=== PATIENT | male | born 1970 | race African-American/Black ===

== ENCOUNTER 2023-10-31 11:32 | Inpatient (IN) | payer MEDICARE, MEDICAID ==
[2023-10-31 13:19] LABS: ALT (SGPT) 12 U/L (8-55); AST (SGOT) 9 U/L (5-34); Albumin 3.8 g/dL (3.5-5.0); Alkaline Phosphatase 69 U/L (40-110); Anion Gap 15 mmol/L (10-20); BUN (Urea Nitrogen) 16 mg/dL (8.4-25.7); Bilirubin, Total 0.6 mg/dL (0.2-1.2); Calc. Creatinine Clearance 0 mL/min (70-130); Calcium 9.4 mg/dL (7.8-10.44); Carbon Dioxide 32 mmol/L (22-29); Chloride 99 mmol/L (98-107); Estimated GFR 6; Globulin 5.1 g/dL (2.4-3.5); Glucose 89 mg/dL (70-105); Potassium 3.8 mmol/L (3.5-5.1); Protein, Total 8.9 g/dL (6.0-8.3); Sodium 142 mmol/L (136-145)
[2023-10-31 13:20] LABS: Mean Platelet Volume 10.4 fl (7.4-10.4); Platelet Count 274 10x3/uL (150-450)
[2023-10-31 13:21] LABS: #Eosinphils 0.3 10x3/uL (0.0-0.5); #Monocytes 0.4 10x3/uL (0.0-1.1); #Neutrophils 5.9 10x3/uL (1.5-8.4); %Basophils 0.4 % (0.0-2.0); %Eosinophils 3.7 % (0.0-6.0); %Lymphocytes 10.7 % (18.0-47.0); %Monocytes 5.1 % (0.0-10.0); %Neutrophils 79.3 % (40.0-75.0); Hematocrit 24.2 % (38.8-50.0); Hemoglobin 7.2 g/dL (13.5-17.5); Mean Corpuscular HGB CONC 29.8 g/dL (32.0-36.0); Mean Corpuscular Hemoglobin 21.2 pg (27.0-33.0); Mean Corpuscular Volume 71.4 fl (81.2-95.1); RBC Distribution Width 20.4 % (11.5-14.5); Red Blood Cell (RBC) Count 3.39 10x6/uL (4.32-5.72); White Blood Cell (WBC) Count 7.4 10x3/uL (3.5-10.5)
[2023-10-31] MEDS ORDERED: Ondansetron PF 4 MG/2 ML Vial IVP PRN (15:00)
[2023-10-31] MEDS ORDERED: Acetaminophen 325 MG TAB PO PRN (15:00)
[2023-10-31 15:34] LABS: Iron 27 ug/dL (65-175); Iron Binding Capacity, Total 156 mcg/dL (261-462)
[2023-10-31 18:50] VITALS: BMI 25.8
[2023-10-31] MEDS: Pantoprazole 40 MG VIAL IVP SCH (21:32)
[2023-11-01 04:51] LABS: #Eosinphils 0.4 10x3/uL (0.0-0.5); #Monocytes 0.5 10x3/uL (0.0-1.1); #Neutrophils 3.5 10x3/uL (1.5-8.4); %Basophils 0.5 % (0.0-2.0); %Eosinophils 7.6 % (0.0-6.0); %Lymphocytes 19.5 % (18.0-47.0); %Monocytes 8.1 % (0.0-10.0); %Neutrophils 63.8 % (40.0-75.0); Mean Corpuscular HGB CONC 28.6 g/dL (32.0-36.0); Mean Corpuscular Hemoglobin 20.6 pg (27.0-33.0); Mean Corpuscular Volume 72.2 fl (81.2-95.1); Mean Platelet Volume 9.5 fl (7.4-10.4); Platelet Count 218 10x3/uL (150-450); RBC Distribution Width 20.3 % (11.5-14.5); Red Blood Cell (RBC) Count 2.91 10x6/uL (4.32-5.72); White Blood Cell (WBC) Count 5.6 10x3/uL (3.5-10.5)
[2023-11-01 04:52] LABS: Anion Gap 14 mmol/L (10-20); BUN (Urea Nitrogen) 25 mg/dL (8.4-25.7); Calc. Creatinine Clearance 8 mL/min (70-130); Calcium 8.4 mg/dL (7.8-10.44); Carbon Dioxide 29 mmol/L (22-29); Chloride 100 mmol/L (98-107); Estimated GFR 5; Glucose 106 mg/dL (70-105); Potassium 3.9 mmol/L (3.5-5.1); Sodium 139 mmol/L (136-145)
[2023-11-01 05:26] LABS: Anisocytosis MARKED = >30 cells (100X) (0-5/hpf)
[2023-11-01 05:27] LABS: Hypochromia MODERATE=16-30 cells (100X) (0-5/hpf); Macrocytosis SLIGHT = 6-15 cells (100X) (0-5/hpf); Microcytosis MODERATE=15-30 cells (100X) (0-5/hpf); Poikilocytosis SLIGHT = 6-15 cells (100X) (0-5/hpf)
[2023-11-01 05:29] LABS: Polychromasia SLIGHT = 2-3 cells (100X) (0-2/hpf); Target Cells SLIGHT = 2-5 cells (100X) (0-1/hpf)
[2023-11-01 05:30] LABS: Ovalocytes SLIGHT = 2-5 cells (100X) (0-1/hpf)
[2023-11-01 05:33] LABS: Schistocytes SLIGHT = 2-5 cells (100X) (0-1/hpf)
[2023-11-01 05:34] LABS: Platelet Adequacy Comment Appears Adequate
[2023-11-01] MEDS: Pantoprazole 40 MG VIAL IVP SCH ×2 (09:12→21:04)
[2023-11-01] MEDS ORDERED: GoLYTELY 4,000 ml Bottle PO SCH (19:00)
[2023-11-02 07:50] LABS: Anion Gap 17 mmol/L (10-20); BUN (Urea Nitrogen) 37 mg/dL (8.4-25.7); Calc. Creatinine Clearance 7 mL/min (70-130); Calcium 8.8 mg/dL (7.8-10.44); Carbon Dioxide 27 mmol/L (22-29); Chloride 100 mmol/L (98-107); Estimated GFR 4; Glucose 88 mg/dL (70-105); Potassium 4.5 mmol/L (3.5-5.1); Sodium 139 mmol/L (136-145)
[2023-11-02 08:02] LABS: #Eosinphils 0.5 10x3/uL (0.0-0.5); #Monocytes 0.4 10x3/uL (0.0-1.1); #Neutrophils 5.3 10x3/uL (1.5-8.4); %Basophils 0.4 % (0.0-2.0); %Eosinophils 6.1 % (0.0-6.0); %Lymphocytes 17.8 % (18.0-47.0); %Monocytes 5.3 % (0.0-10.0); %Neutrophils 69.7 % (40.0-75.0); Hematocrit 23.2 % (38.8-50.0); Mean Corpuscular HGB CONC 30.2 g/dL (32.0-36.0); Mean Platelet Volume 9.9 fl (7.4-10.4); Platelet Count 246 10x3/uL (150-450); RBC Distribution Width 19.9 % (11.5-14.5); Red Blood Cell (RBC) Count 3.18 10x6/uL (4.32-5.72); White Blood Cell (WBC) Count 7.5 10x3/uL (3.5-10.5)
[2023-11-02] MEDS: Pantoprazole 40 MG VIAL IVP SCH ×2 (08:31→21:23)
[2023-11-02] MEDS ORDERED: GoLYTELY 4,000 ml Bottle PO SCH (18:00)
[2023-11-03 06:06] LABS: #Eosinphils 0.4 10x3/uL (0.0-0.5); #Monocytes 0.4 10x3/uL (0.0-1.1); %Basophils 0.6 % (0.0-2.0); %Eosinophils 5.9 % (0.0-6.0); %Lymphocytes 16.2 % (18.0-47.0); %Monocytes 5.5 % (0.0-10.0); %Neutrophils 71.4 % (40.0-75.0); Hematocrit 24.2 % (38.8-50.0); Hemoglobin 7.4 g/dL (13.5-17.5); Mean Corpuscular HGB CONC 30.6 g/dL (32.0-36.0); Mean Corpuscular Hemoglobin 21.8 pg (27.0-33.0); Mean Corpuscular Volume 71.2 fl (81.2-95.1); Mean Platelet Volume 9.2 fl (7.4-10.4); Platelet Count 209 10x3/uL (150-450); RBC Distribution Width 20.5 % (11.5-14.5)
[2023-11-03] MEDS: Pantoprazole 40 MG VIAL IVP SCH ×2 (08:45→21:30)
[2023-11-03] MEDS ORDERED: PROPOFOL 40 ML ONE (12:07)
[2023-11-03] MEDS ORDERED: Glycopyrrolate 0.2 MG/ML 5 ML SYRINGE ONE (12:07)
[2023-11-03] MEDS ORDERED: PROPOFOL 20 ML ONE (12:35)
[2023-11-03 16:15] LABS: HBSAg Index 0.23 S/CO (0-0.99); Hep B Surf Ag Non-Reactive S/CO (NonReactive)
[2023-11-04 05:39] LABS: HBSAg Index 0.25 S/CO (0-0.99); Hep B Surf Ag Non-Reactive S/CO (NonReactive)
[2023-11-04] MEDS: Pantoprazole 40 MG VIAL IVP SCH (09:08)
[2023-11-04 13:20] LABS: Hematocrit 23.6 % (38.8-50.0); Hemoglobin 7.2 g/dL (13.5-17.5)
[2023-11-04 14:21] LABS: Hep B Core Total Ab Non-Reactive (NonReactive); Hep B Core Total Index 0.13 S/CO (0-0.79); Hep C IgG Ab Non-Reactive S/CO (NonReactive); Hep C Index 0.63 S/CO (0-0.79)
[2023-11-04 14:24] LABS: HBSAB Concentration 281.17 mIU/mL; Hep B Surf AB Reactive (NonReactive)
[2023-11-04 14:50] LABS: Hep B Core Total Ab Non-Reactive (NonReactive); Hep B Core Total Index 0.22 S/CO (0-0.79)
[2023-11-04 14:51] LABS: HBSAB Concentration 283.23 mIU/mL; Hep B Surf AB Reactive (NonReactive)
[2023-11-04 14:52] LABS: Hep C IgG Ab Non-Reactive S/CO (NonReactive); Hep C Index 0.74 S/CO (0-0.79)
[2023-11-04 17:35] VITALS: BP 142/81; TEMP 98.6
== END 2023-11-04 20:49 | disposition home or self-care (01) | DRG 393 ==
LOC: CSHERS 11:32 → CSHTELE 14:36 → OBSVTOIN 11-02 15:21
PROVIDERS: ADMIT Internal Medicine; ATTEND Internal Medicine
PROC: 30233N1 Transfusion of Nonautologous Red Blood Cells into Peripheral Vein, Percutaneous Approach (ICD-10-PCS; 2023-11-01)
PROC: 0DB98ZX Excision of Duodenum, Via Natural or Artificial Opening Endoscopic, Diagnostic (ICD-10-PCS; principal; 2023-11-03)
PROC: 0DBL8ZZ Excision of Transverse Colon, Via Natural or Artificial Opening Endoscopic (ICD-10-PCS; 2023-11-03)
PROC: 0W3P8ZZ Control Bleeding in Gastrointestinal Tract, Via Natural or Artificial Opening Endoscopic (ICD-10-PCS; 2023-11-03)
DX: K64.8 Other hemorrhoids (principal); N18.6 End stage renal disease; D50.9 Iron deficiency anemia, unspecified; E21.3 Hyperparathyroidism, unspecified; D63.1 Anemia in chronic kidney disease; Z99.2 Dependence on renal dialysis; Z79.899 Other long term (current) drug therapy; Z98.890 Other specified postprocedural states; K63.5 Polyp of colon
CPT/HCPCS: 36415; 36430; 80048; 80053; 82728; 83540; 83550; 85014; 85018; 85025; 85046; 86704; 86850; 86900; 86901; 88305; 96374; 96376; 99284; C9113; G0378; J2704; P9016